=== PATIENT | male | born 1975 | race Caucasian/White ===

== ENCOUNTER 2022-05-25 12:33 | Outpatient (CLI) | payer MEDICARE, SELFPAY ==
[2022-05-25 22:46] LABS: Chloride* 102 mmol/L (96-114); Potassium* 4.6 mmol/L (3.6-5.1); Sodium* 139 mmol/L (135-149)
[2022-05-25 22:48] LABS: Aspartate Amino Transferase* 30 U/L (12-35); Bilirubin Total* 0.7 mg/dL (0.1-1.5); Blood Urea Nitrogen* 14 mg/dL (5-24); Carbon Dioxide* 28 mmol/L (20-32); Cholesterol* 181 mg/dL (90-199); Creatinine* 0.9 mg/dL (0.5-1.5); Estimated Glomerular Filt Rate 106 ml/min; Total Protein* 7.8 g/dL (6.0-8.3)
[2022-05-25 22:49] LABS: Alanine Aminotransferase* 30 U/L (4-50); Alkaline Phosphatase* 80 U/L (40-150); Calcium* 9.4 mg/dL (8.4-10.6); Glucose* 106 mg/dL (60-115); HDL Cholesterol* 56 mg/dL (>=40); LDL Cholesterol Calculated 99 mg/dL (<100); Magnesium* 2.3 mg/dL (1.5-2.6); Triglycerides* 131 mg/dL (40-149)
[2022-05-25 23:04] LABS: Creatinine Urine 58.2 mg/dL
[2022-05-25 23:08] LABS: Microalbumin Creatinine Ratio 10 mg/g (0-30); Microalbumin Urine 1 mg/dL
== END 2022-05-25 12:34 | disposition home or self-care (01) ==
PROVIDERS: PCP Family Medicine; Visit Provider Family Medicine
DX: R10.9 Unspecified abdominal pain (principal); G89.29 Other chronic pain; I10 Essential (primary) hypertension
CPT/HCPCS: 80053; 80061; 82043; 82570; 83735

== ENCOUNTER 2022-06-02 10:21 | Outpatient (CLI) | payer MEDICARE, MEDICAID, SELFPAY ==
--- NOTE | 2022-06-02 10:45 | CRLHL7_ITS ---
For Patients: As a result of the Century Cures Act, medical imaging exams and procedure reports are released immediately into your electronic medical record. You may view this report before your referring provider. If you have questions, please contact your health care provider. INDICATION: Right upper quadrant and flank pain TECHNIQUE: Ultrasound abdomen limited. Sonographic images of the right upper quadrant were obtained using diaz-scale and color Doppler images. COMPARISON: None FINDINGS: Liver: Normal in size with mild diffuse fatty infiltration. No masses. No intrahepatic biliary dilatation. Gallbladder: No stones or sludge. Normal wall thickness. No pericholecystic fluid. Common bile duct: 0.7 mm. Pancreas: Normal. Right kidney: 13.2 cm. Normal echotexture and cortex. No masses, stones, or hydronephrosis. Vasculature: Proximal abdominal aorta and IVC are normal. IMPRESSION: Mild diffuse fatty infiltration of liver. Normal gallbladder and common bile duct. Dictated by Deo Valdovinos MD @ 06/02/2022 11:28:10 AM (Electronically Signed)
== END 2022-06-02 10:22 | disposition home or self-care (01) ==
LOC: US 10:22
PROVIDERS: PCP Family Medicine; Visit Provider Family Medicine
DX: R10.11 Right upper quadrant pain (principal); K76.0 Fatty (change of) liver, not elsewhere classified
CPT/HCPCS: 76705

== ENCOUNTER 2022-07-02 10:38 | Outpatient (CLI) | payer MEDICARE, MEDICAID, SELFPAY ==
--- NOTE | 2022-07-02 11:00 | CRLHL7_ITS ---
For Patients: As a result of the Century Cures Act, medical imaging exams and procedure reports are released immediately into your electronic medical record. You may view this report before your referring provider. If you have questions, please contact your health care provider. INDICATION: Thoracic back pain. COMPARISON: None. TECHNIQUE: Noncontrast CT thoracic spine. FINDINGS: Trace midthoracic curve convex the left. In sagittal plane, normal vertebral body facet alignment. No fractures. No vertebral body loss of height. No spondylolisthesis. No fractures of the visualized posterior ribs. Mild thoracic spondylosis with multilevel disc degeneration. T5-6: Disc degeneration with a small right paracentral disc osteophyte complex or endplate osteophytic spur. Otherwise, no spinal canal or neural foraminal narrowing. No spinal canal or neural foraminal narrowing at remaining levels. Visualized lungs are clear. Normal paraspinal soft tissues. IMPRESSION: 1. Trace mid thoracic curve convex to the left. 2. Normal alignment. No fractures. 3. Mild thoracic spondylosis. 4. No spinal canal or neural foraminal narrowing at all levels of the thoracic spine Please note that all CT scans at this facility use dose modulation, iterative reconstruction, and/or weight-based dosing when appropriate to reduce radiation dose to as low as reasonably achievable. Dictated by Stanley Dudley MD @ 07/02/2022 3:55:11 PM (Electronically Signed)
== END 2022-07-02 10:39 | disposition home or self-care (01) ==
LOC: CT 10:39
PROVIDERS: PCP Family Medicine; Visit Provider Family Medicine
DX: M54.6 Pain in thoracic spine (principal); M47.894 Other spondylosis, thoracic region
CPT/HCPCS: 72128

== ENCOUNTER 2022-07-09 16:05 | Outpatient (RCR) | payer MEDICARE, MEDICAID, SELFPAY ==
--- NOTE | 2022-07-09 17:10 | PT.OPEX ---
[facility] [place] [facility] Start: 07/09/22 16:00 Freq: Status: Active Protocol: Document 07/09/22 16:00 MIKY (Rec: 07/09/22 17:08 SHAREEAGERV [id number]) E-signed By Veronica Blanco Physical Therapy Outpatient Evaluation Insurance Information Recert Due Date 10/08/22 Insurance Name Medicare B Medical Diagnosis LBP of thoracolumbar region with sciatica Treating Diagnosis Lumbar radiculopathy Sciatica Low back pain Referring MD Kristen Walker Subjective Subjective Pt reports he got hurt 4 years ago at work, resulting in TBI , broken neck and back injury. Has been on disability since. Hx of herniated disc in lower back with sciatic nerve compression that is not chronic resulting in L large toe numbness and L foot drop. Two years ago, pt started experiencing numbness in lips and tongue with an inc in back pain. Had thorough exam of lungs, back, and liver which were clear. Pt presents to PT with main issue of pain in R thoracic spine just distal to inferior border of R scapula. Pt reports that it's uncomfortable to take a deep breath. Prolonged sitting aggravates symptoms. Pt reports that he is very sedentary and drinks a case of beer every day. 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 Balance & Gait Pt reports balance has been affected d/t hx of TBI and sciatic nerve compression. Assessment Assessment/Impression Pt is a 47yo M presenting with pain in thoracic spine as well as a hx of chronic sciatica. PMHx: HTN, herniated disc in L spine, TBI, cervical fx, ETOH. Pt reports he got hurt 4 years ago at work, resulting in TBI, broken neck and back injury. Has been on disability since. Hx of herniated disc in lower back with sciatic nerve compression that is not chronic resulting in L large toe numbness and L foot drop. Pt presents to PT with main issue of pain in R thoracic spine just distal to inferior border of R scapula. Pt demonstrates inc pain with palpation to R thoracic paraspinals with trigger points, dec core and back strength, as well as general deconditioning. Pt would continue to benefit from skilled PT services to address pain, strength, and ROM deficits. Primary Functional Limitations Pain Inc muscle tension with trigger points in R thoracic paraspinals L foot drop d/t long standing hx of sciatica Dec core strength Plan of Care Rehabilitation Potential Excellent Physical Therapy Goals 1. In 6 weeks, pt will inc paraspinal strength to 4/5 in order to reduce back pain with activity. 2. In 6 weeks, pt will be able to sit for 60min w/o an inc in back pain in order to sit and watch children's sports games. 3. In 6 weeks, pt will report 1/10 thoracic pain with palpation of paraspinals in order to reduce tissue tension and perform ADLs. Coordination/Communication With Referral Source Treatment Plan/Direct Interventions Gait Training,Manual Therapy, Therapeutic Activities, Therapeutic Exercises,Traction (Mechanical) Frequency/Duration 1x/week for 6 weeks Evaluation Billing Untimed Code Treatment Minutes 20 PT Eval No Charge No Complexity Moderate Certification Information Initial Certification Date 07/09/22 Ending Certification Date 10/08/22 Provider Signature Shows Agreement With POC & Medical Necessity Physician Comment/Change : Physician NPI Number #
== END 2022-09-01 09:02 | disposition home or self-care (01) ==
PROVIDERS: PCP Family Medicine; Visit Provider Family Medicine
DX: M54.50 Low back pain, unspecified (principal); Z51.89 Encounter for other specified aftercare
CPT/HCPCS: 97110; 97140; 97162

== ENCOUNTER 2022-11-16 10:21 | Outpatient (CLI) | payer MEDICARE, SELFPAY | END 2022-11-16 10:22 | disposition home or self-care (01) | PROVIDERS: PCP Family Medicine; Visit Provider Family Medicine | DX: I10 Essential (primary) hypertension (principal); F33.9 Major depressive disorder, recurrent, unspecified; R53.83 Other fatigue | CPT/HCPCS: 80053; 80061; 82043; 82570; 84443 ==

== ENCOUNTER 2022-12-10 08:31 | Outpatient (CLI) | payer MEDICARE, OTHER, SELFPAY | END 2022-12-10 08:32 | disposition home or self-care (01) | LOC: OP CLINIC 08:34 | PROVIDERS: PCP Family Medicine; Visit Provider Surgery | DX: Z12.11 Encounter for screening for malignant neoplasm of colon (principal); K63.5 Polyp of colon | CPT/HCPCS: 45385; 88305; 99153; J1200; J2250; J3010 ==

== ENCOUNTER 2023-11-15 07:55 | Outpatient (CLI) | payer MEDICARE, SELFPAY | END 2023-11-15 07:56 | disposition home or self-care (01) | LOC: NFLDREF 11-17 13:56 | PROVIDERS: PCP Physician Assistant Medical; Referring Provider Physician Assistant Medical; Visit Provider Physician Assistant Medical | DX: I10 Essential (primary) hypertension (principal); Z13.220 Encounter for screening for lipoid disorders; Z13.29 Encounter for screening for other suspected endocrine disorder | CPT/HCPCS: 80053; 80061; 84443 ==

== ENCOUNTER 2024-10-09 11:28 | Outpatient (CLI) | payer MEDICARE, SELFPAY | END 2024-10-09 11:29 | disposition home or self-care (01) | LOC: NFLDREF 10-12 23:25 | PROVIDERS: PCP Physician Assistant Medical; Referring Provider Physician Assistant Medical; Visit Provider Physician Assistant Medical | DX: Z00.01 Encounter for general adult medical examination with abnormal findings (principal); I10 Essential (primary) hypertension; Z13.29 Encounter for screening for other suspected endocrine disorder | CPT/HCPCS: 80053; 80061; 84443 ==